=== PATIENT | female | born 1960 | race Caucasian/White ===

== ENCOUNTER 2019-05-27 14:56 | Outpatient (CLI) | payer BC, SELFPAY ==
--- NOTE | 2019-05-27 | XR_ITS ---
WS: [id number] CERVICAL SPINE 5 VIEWS HISTORY: CHRONIC NECK PAIN, RADICULOPATHY LT SIDE COMPARISON: None available. TECHNIQUE: AP, oblique and lateral radiographs. Flexion and extension. Moderate disc space narrowing at C3-4 and C5-6 and C6-7. No fractures. C2 retrolisthesis by 1 mm on n eutral imaging. Retrolisthesis increases to 2.4 mm during extension. There are small osteophytes thro ughout the cervical spine. No additional levels of instability. Facet joint arthropathy is mild. Late ral masses of C1 and C2 are aligned. XR/XR cervical spine 4-5V [id number] IMPRESSION: 1. Multilevel spondylosis, most significant at C3-4, C5-6 and C6-7. No fractur e. 2. Very mild extension instability at C2.
== END 2019-05-27 14:57 | disposition home or self-care (01) ==
LOC: RADOUTREAD 05-28 08:55
PROVIDERS: Family Provider Family Medicine; PCP Family Medicine; Visit Provider Family Medicine
DX: Z76.89 Persons encountering health services in other specified circumstances (principal)

== ENCOUNTER 2019-06-11 08:01 | Outpatient (CLI) | payer BC, SELFPAY ==
--- NOTE | 2019-06-11 08:08 | MR_ITS ---
WS: [id number] MRI CERVICAL SPINE HISTORY: CERVICAL RADICULOPATHY COMPARISON: None available. Less than 2 mm retrolisthesis of C2 and C3. Moderate disc space narrowing throughout the cervical spi ne with osteophytes and disc bulging. No fractures. Small amount of reactive marrow edema along the a djacent endplates of T1 and T2. Signal within the cervical cord is normal. Visualized posterior fossa is unremarkable. Craniocervical junction, C1 and C2 relationship, odontoid process and soft tissues are normal. C2-C3: Normal. C3-C4: Mild disc bulging and small osteophytes without stenosis. C4-C5: Mild osteophytic ridging and disc bulging. No significant stenosis. C5-C6: Annular disc bulging and osteophytic ridging. Mild encroachment into the neural foramen but no severe stenosis. C6-C7: Mild annular disc bulging and osteophytic ridging. No significant stenosis. C7-T1: Normal. T1-2: Mild osteophytic ridging and disc bulging. No significant stenosis. Seen only on the axial T2 sequences is increased signal and fullness in the RIGHT larynx near the rodney lecula. Increased signal measures 6.3 mm. MR/MR cervical spin wo con* [id number] IMPRESSION: 1. Multilevel moderate spondylitic changes throughout the cervical spine. 2. No significant central or foraminal stenosis. 3. Most significant osteophytic ridging and disc bulging is at C5-6 and C6-7. 4. Increased signal and a 6.3 mm nodule in the RIGHT vallecula. Recommend foll ow-up neck CT with IV contrast to evaluate for possible laryngeal mass.
== END 2019-06-11 08:02 | disposition home or self-care (01) ==
LOC: RADSHAW 08:04
PROVIDERS: Family Provider Family Medicine; PCP Family Medicine; Visit Provider Family Medicine
DX: M54.12 Radiculopathy, cervical region (principal); M50.223 Other cervical disc displacement at C6-C7 level
CPT/HCPCS: 72141

== ENCOUNTER 2019-06-25 13:12 | Outpatient (CLI) | payer BC, SELFPAY ==
--- NOTE | 2019-06-25 13:19 | CT_ITS ---
WS: [id number] CT NECK WITH CONTRAST HISTORY: NODULE OF LARYNX TECHNIQUE: Contiguous 5 mm axial images are performed through the neck with intravenous contrast. Sag ittal and coronal reformats are also submitted. All CT scans at [facility] use at least o ne of these dose optimization techniques: automated exposure control; mA and/or kV adjustment per pat ient size (includes targeted exams where dose is matched to clinical indication); or iterative recons truction. CONTRAST: CONTRAST: Omnipaque 300; 75 mL IV. DLP: 2163.03 mGycm COMPARISON: MRI 06/11/2019 There is a very small nodule measuring 5.8 mm in the RIGHT pharyngoepiglottic fold at the level of th e hyoid bone. This nodule corresponds to the area of abnormal signal seen on the MRI. This is a very subtle finding and this nodule does not significantly enhance and remains low attenuation. No obstruc tion of the airway. Torus tubarius and fossa of Rosenmuller and parapharyngeal fat are normal. Focal cords are intact. There is significant artifact from the patient's dental amalgam through the p osterior tongue and oropharynx. 5 mm LEFT thyroid nodule. Parotid glands are negative. Submandibular glands are poorly visualized due to artifact. No cervical chain adenopathy. Degenerative changes throughout the cervical spine. No osseous destruction. Visualized portions of the skull base demonstrate no abnormalities. Orbits and globes are within norm al limits. No soft tissue masses. Visualized paranasal sinuses and mastoid air cells are normal. Lung apices are clear. CT/CT neck w con* [id number] IMPRESSION: 1. Low-attenuation 5.8 mm nodule in the RIGHT pharyngoepiglottic fold. Corresp onds to the abnormality seen on recent PET/CT. Recommend direct visualization a nd possible biopsy. Early neoplasm not excluded. 2. No cervical chain adenopathy.
[2019-06-25] MEDS: iohexol 300 mg/mL 100 mL Btl IV (13:40)
== END 2019-06-25 13:13 | disposition home or self-care (01) ==
LOC: RADWPI 13:14
PROVIDERS: Family Provider Family Medicine; PCP Family Medicine; Visit Provider Family Medicine
DX: J39.2 Other diseases of pharynx (principal); J34.2 Deviated nasal septum
CPT/HCPCS: 31575; 70491; 99214; Q9967

== ENCOUNTER 2020-04-20 11:53 | Outpatient (CLI) | payer BC, SELFPAY ==
--- NOTE | 2020-04-20 11:56 | MM_ITS ---
WS: [id number] Exam: [place] [id number] Date/Time of Exam: 04/20/2020 11:59 AM Reason For Exam: SCREENING VIEWS: MLO and CC views both breasts. Comparison made with prior exam of 11/25/2016. Findings: There was no sign of mass, architectural distortion or suspicious calcification in either breast. Hernandez MM/[place] [id number] Impression: BI-RADS: 2-Benign FOLLOW-UP: 1 Year Follow-up This mammogram was also analyzed by the Computer Aided Detection System R2 [employer].
== END 2020-04-20 11:54 | disposition home or self-care (01) ==
LOC: RADSHAW 11:55
PROVIDERS: Family Provider Family Medicine; PCP Family Medicine; Visit Provider Obstetrics & Gynecology
DX: Z12.31 Encounter for screening mammogram for malignant neoplasm of breast (principal)
CPT/HCPCS: 77067

== ENCOUNTER 2022-07-01 09:11 | Outpatient (CLI) | payer BC, SELFPAY ==
--- NOTE | 2022-07-01 09:16 | MM_ITS ---
WS: [id number] BILATERAL SCREENING DIGITAL TOMOSYNTHESIS MAMMOGRAM WITH CAD HISTORY: SCREENING COMPARISON: 04/12/2020 and 08/20/2018 Bilateral CC and MLO views with tomosynthesis and synthetic mammography submitted. Computer aided det ection analyzed. Breast composition: The breasts are extremely dense, which lowers the sensitivity of mammography. No suspicious masses, microcalcifications or architectural distortion. Bilateral calcifications in each breast. MM/[place] [id number] IMPRESSION: BI-RADS: 2-Benign FOLLOW UP: 1 Year Follow-up
== END 2022-07-01 09:12 | disposition home or self-care (01) ==
PROVIDERS: PCP Family Medicine; Visit Provider Family Medicine
DX: Z12.31 Encounter for screening mammogram for malignant neoplasm of breast (principal)
CPT/HCPCS: 77063; 77067

== ENCOUNTER 2022-10-07 12:51 | Outpatient (CLI) | payer BC, SELFPAY ==
--- NOTE | 2022-10-07 13:00 | XR_ITS ---
WS: [id number] DEXA (DUAL ENERGY X-RAY ABSORPTIOMETRY) Bone mineral density was performed using a Strut machine. HISTORY: Z78.0 - Asymptomatic menopausal state COMPARISON: None available. Lumbar spine BMD (L1-L4): 0.927 g/cm2 T score: -2.1 Z score: -0.4 Total hip BMD: Left: 0.690 g/cm2. T score: -2.5 Z score: -1.2 Right: 0.648 g/cm2. T score: -2.9 Z score: -1.5 10 year probability of a major osteoporotic fracture is 18.5%. XR/XR DEXA axial skeleton* [id number] IMPRESSION: OSTEOPOROSIS based upon the WHO classification for females.
== END 2022-10-07 12:52 | disposition home or self-care (01) ==
LOC: RAD 12:51
PROVIDERS: PCP Family Medicine; Visit Provider Nurse Practitioner Women's Health
DX: Z13.820 Encounter for screening for osteoporosis (principal); Z78.0 Asymptomatic menopausal state; M81.0 Age-related osteoporosis without current pathological fracture
CPT/HCPCS: 77080

== ENCOUNTER 2023-10-05 13:50 | Outpatient (CLI) | payer BC, SELFPAY ==
--- NOTE | 2023-10-05 13:55 | MM_ITS ---
WS: [id number] BILATERAL SCREENING DIGITAL TOMOSYNTHESIS MAMMOGRAM WITH CAD HISTORY: SCREENING COMPARISON: 07/01/2022, 04/20/2020 Bilateral CC and MLO views with tomosynthesis and synthetic mammography submitted. Computer aided det ection analyzed. Breast composition: The breasts are extremely dense, which lowers the sensitivity of mammography. No suspicious masses, microcalcifications or architectural distortion. Benign calcifications in each angelica ast. MM/[place] [id number] IMPRESSION: BI-RADS: 2-Benign FOLLOW UP: 1 Year Follow-up
== END 2023-10-05 13:51 | disposition home or self-care (01) ==
LOC: RAD 13:50
PROVIDERS: PCP Family Medicine; Visit Provider Family Medicine
DX: Z12.31 Encounter for screening mammogram for malignant neoplasm of breast (principal); R92.343 Mammographic extreme density, bilateral breasts; R92.1 Mammographic calcification found on diagnostic imaging of breast
CPT/HCPCS: 77063; 77067

== ENCOUNTER 2024-11-11 13:33 | Outpatient (CLI) | payer BC, SELFPAY ==
--- NOTE | 2024-11-11 13:30 | XR_ITS ---
WS: [id number] DEXA (DUAL ENERGY X-RAY ABSORPTIOMETRY) Bone mineral density was performed using a [employer] machine. HISTORY: OSTEOPOROSIS COMPARISON: 10/07/2022 Lumbar spine BMD (L1-L4): 0.954 g/cm2 T score: -1.9 Z score: 0.2 Total hip BMD: Left: 0.661 g/cm2. T score: -2.8 Z score: -1.2 Right: 0.630 g/cm2. T score: -3.0 Z score: -1.4 10 year probability of a major osteoporotic fracture is 18.0%. Compared to the prior study from 10/07/2022. Lumbar spine bone mineral density has increased by 2.9%. Bilateral hips bone mineral density has decreased by 3.4%. XR/XR DEXA axial skeleton* [id number] IMPRESSION: OSTEOPOROSIS based upon the WHO classification for females. Significant increase in bone mineral density within the lumbar spine since the prior study. Significant decrease in bone mineral density in the hips since the prior study.
--- NOTE | 2024-11-11 13:42 | MM_ITS ---
WS: [id number] BILATERAL 3D TOMOSYNTHESIS DIGITAL SCREENING MAMMOGRAM WITH CAD CLINICAL INFORMATION: SCREEN HISTORY: Screening mammogram. No current complaints. COMPARISON: 2023 TECHNIQUE: Bilateral CC and MLO. FINDINGS: The breast are composed of extremely dense tissue, which can limit the detection of small underlying mass lesions. No suspicious focal mass, asymmetry, calcifications, or architectural distortion. No evidence of malignancy. Incidental punctate and lucent centered calcifications. Stable cluster calcific ations posterior LEFT breast MM/MM [facility] tomosynthesis [id number] IMPRESSION: DENSITY: The breasts are extremely dense, which lowers the sensitivity of mammo graphy. BI-RADS: 2 - Benign FOLLOW UP: 1 Year Follow-up Recommend return to annual screening mammography.
== END 2024-11-11 13:34 | disposition home or self-care (01) ==
LOC: RAD 13:33
PROVIDERS: PCP Family Medicine; Visit Provider Family Medicine
DX: Z12.31 Encounter for screening mammogram for malignant neoplasm of breast (principal); Z13.820 Encounter for screening for osteoporosis; R92.343 Mammographic extreme density, bilateral breasts; R92.1 Mammographic calcification found on diagnostic imaging of breast; M85.89 Other specified disorders of bone density and structure, multiple sites
CPT/HCPCS: 77063; 77067; 77080